=== PATIENT | female | born 1955 | race Caucasian/White ===

== ENCOUNTER → 2016-09-18 | Outpatient (CLI) | payer BC | END | disposition home or self-care (01) | LOC: RAD 10:32 | DX: R07.9 Chest pain, unspecified (principal); R22.2 Localized swelling, mass and lump, trunk ==

== ENCOUNTER → 2017-07-30 | Outpatient (CLI) | payer BC | END | disposition home or self-care (01) | LOC: RAD 12:24 | DX: M54.5 Low back pain (principal) ==

== ENCOUNTER 2024-09-14 15:14 | Inpatient (IN) | payer OTHER ==
[~2024-09-14] VITALS: Ht 157.4 cm; Wt 86.9 kg
[2024-09-14] MEDS ORDERED: MAGNESIUM SULFATE 50 ML IV ONE (15:25)
[2024-09-14] MEDS ORDERED: Albuterol Sulf/Ipratropium 3 ML VIAL NEB ONE (15:25)
[2024-09-14 15:29] VITALS: BP 124/87
[2024-09-14 15:52] LABS: BASO % 0.3 % (0.0-1.0); EOS # 0.1 10*3/uL (0.0-0.4); EOS % 2.1 % (1.0-4.0); HEMATOCRIT 44.3 % (37.0-47.0); MEAN CELL VOLUME 93.9 fl (81.0-99.0); MEAN CORPUSCULAR HGB 31.8 pg (27.0-31.0); MEAN CORPUSCULAR HGB CONC 33.9 g/dl (33.0-37.0); MEAN PLATELET VOLUME 9.6 fl (9.6-12.3); MONO # 0.4 10*3/uL (0.1-1.0); NEUT # 3.8 10*3/uL (2.3-7.9); NEUT % 61.9 % (47.0-73.0); PLATELET COUNT AUTOMATED 327 10*3/uL (130-400); RED BLOOD COUNT 4.72 10*6/uL (4.10-5.10); RED CELL DISTRI WIDTH 12.9 % (0-14.5); WHITE BLOOD COUNT 6.1 10*3/uL (4.8-10.8)
[2024-09-14] MEDS ORDERED: Albuterol Sulfate 2.5 MG/3 ML VIAL NEB ONE (15:55)
[2024-09-14 16:03] LABS: ACT PARTIAL THROMBO TIME 25.3 SECONDS (20.0-32.1)
[2024-09-14 16:46] LABS: ALKALINE PHOSPHATASE 117 U/L (46-116); BUN 14 mg/dl (9-23); CHLORIDE 103 mmol/L (98-107); SGPT/ALT 48 U/L (5-49); TOTAL PROTEIN 7.4 gm/dL (6.0-8.0)
[2024-09-14] MEDS ORDERED: VENT7GM INH (16:50)
[2024-09-14 16:51] VITALS: BP 136/85
[2024-09-14] MEDS ORDERED: BISACODYL 10 MG SUPP R PRN (17:25)
[2024-09-14] MEDS ORDERED: MORPHINE Sulfate 2 MG/ML SYR IV PRN (17:25)
[2024-09-14] MEDS ORDERED: Acetaminophen/Hydrocodone 5 MG/325 MG TABLET PO PRN (17:25)
[2024-09-14] MEDS ORDERED: Ondansetron Hydrochloride 4 MG/2 ML VIAL IV PRN (17:25)
[2024-09-14] MEDS ORDERED: TEMAZEPAM 15 MG CAP PO PRN (17:25)
[2024-09-14] MEDS ORDERED: ACETAMINOPHEN 650 MG SUPP R PRN (17:25)
[2024-09-14] MEDS ORDERED: BISACODYL 5 MG TAB PO PRN (17:25)
[2024-09-14] MEDS ORDERED: ACETAMINOPHEN 325 MG TAB PO PRN (17:25)
[2024-09-14] MEDS ORDERED: Magnesium Hydroxide 30 ML UDC PO PRN (17:25)
[2024-09-14] MEDS ORDERED: Albuterol Sulf/Ipratropium 3 ML VIAL NEB SCH (17:30)
[2024-09-14] MEDS ORDERED: IOHEXOL 350 MG/ML 100 ML VIAL IV ONE (17:45)
[2024-09-14] MEDS ORDERED: SODIUM CHLORIDE 0.9% 100 ML BAG IV ONE (17:45)
[2024-09-14] MEDS ORDERED: RIVAROXABAN 20 MG TAB PO SCH (18:00)
[2024-09-14] MEDS ORDERED: Enoxaparin Sodium 100 MG/ML SYR SC SCH (18:00)
[2024-09-14] MEDS ORDERED: AZITHROMYCIN 250 ML IV SCH (18:00)
[2024-09-14 18:01] LABS: ABG BASE EXCESS -1.1 mmol/L (-2.0-3.0); ABG O2 SATURATION 97.9 % (94.0-98.0); ARTERIAL BLOOD GAS PH 7.457 (7.350-7.450); ARTERIAL BLOOD GAS PO2 97.6 mmHg (83.0-108.0)
[2024-09-14] MEDS ORDERED: cefTRIAXone Sodium 10 ML IV SCH (19:00)
[2024-09-14 19:16] VITALS: BP 141/84
[2024-09-14] MEDS ORDERED: GUAIFENESIN 600 MG TAB ER PO SCH (22:00)
[2024-09-14] MEDS ORDERED: Dexamethasone Sodium Phospha 10 MG/1 ML VIAL IV SCH (22:00)
[2024-09-14 23:00] VITALS: BP 123/70
[2024-09-15] MEDS ORDERED: DEXAMETHASONE IV SCH (06:00)
[2024-09-15] MEDS ORDERED: [UNRECOGNIZED DRUG - OTHER] IV SCH (06:00)
[2024-09-15 06:20] LABS: HEMATOCRIT 39.8 % (37.0-47.0); MEAN CELL VOLUME 94.5 fl (81.0-99.0); MEAN CORPUSCULAR HGB 31.1 pg (27.0-31.0); MEAN CORPUSCULAR HGB CONC 32.9 g/dl (33.0-37.0); MEAN PLATELET VOLUME 9.9 fl (9.6-12.3); MONO # 0.2 10*3/uL (0.1-1.0); MONO % 4.2 % (3.0-9.0); NEUT # 2.8 10*3/uL (2.3-7.9); PLATELET COUNT AUTOMATED 315 10*3/uL (130-400); RED BLOOD COUNT 4.21 10*6/uL (4.10-5.10); RED CELL DISTRI WIDTH 12.7 % (0-14.5); WHITE BLOOD COUNT 3.6 10*3/uL (4.8-10.8)
[2024-09-15 06:37] LABS: ALKALINE PHOSPHATASE 102 U/L (46-116); BUN 13 mg/dl (9-23); CHLORIDE 102 mmol/L (98-107); CHOLESTEROL 182 mg/dL (<200); FREE T4 1.14 ng/dl (0.89-1.76); LDL CHOLESTEROL 115 mg/dL (9-159); POTASSIUM 4.7 mmol/L (3.4-5.1); SGPT/ALT 41 U/L (5-49); TRIGLYCERIDES 76 mg/dl (<150)
[2024-09-15 06:58] LABS: VITAMIN D, 25-HYDROXY 41.1 ng/mL (30-100)
[2024-09-15] MEDS ORDERED: SODIUM CHLORIDE 0.9% 1,000 ML IV SCH (07:20)
[2024-09-15] MEDS ORDERED: Phosphorus/Potassium 1.45 GM PACKET PO SCH (07:30)
[2024-09-15 08:00] VITALS: BP 128/82
[2024-09-15 12:00] VITALS: BP 141/79
[2024-09-15] MEDS ORDERED: methylPREDNISolone sod succ 125 MG VIAL IV SCH (13:30)
[2024-09-15 16:00] VITALS: BP 127/66
[2024-09-15] MEDS ORDERED: RIVAROXABAN 20 MG TAB PO SCH (18:00)
[2024-09-15 20:00] VITALS: BP 141/73
[2024-09-15] MEDS ORDERED: FLUTICASONE PROPIONATE Nasal 16 Gm spray NAS SCH (21:00)
[2024-09-16] VITALS: BP 96/66
[2024-09-16 02:22] LABS: BILIRUBIN Negative (Negative); BLOOD Negative (Negative); CLARITY Clear (Clear); COLOR Yellow (Yellow); GLUCOSE 1+ (Negative); KETONE Negative (Negative); LEUKO ESTERASE 2+ (Negative); NITRITE Negative (Negative); PH 6.5 (4.5-8.0); SPECIFIC GRAVITY 1.015 (1.001-1.030); UROBILINOGEN 0.2 E.U./dl (0.0-1.0)
[2024-09-16 06:25] LABS: BASO % 0.1 % (0.0-1.0); HEMATOCRIT 36.9 % (37.0-47.0); MEAN CELL VOLUME 95.8 fl (81.0-99.0); MEAN CORPUSCULAR HGB 31.4 pg (27.0-31.0); MEAN CORPUSCULAR HGB CONC 32.8 g/dl (33.0-37.0); MEAN PLATELET VOLUME 9.9 fl (9.6-12.3); MONO # 0.5 10*3/uL (0.1-1.0); MONO % 3.7 % (3.0-9.0); NEUT # 11.8 10*3/uL (2.3-7.9); NEUT % 88.9 % (47.0-73.0); PLATELET COUNT AUTOMATED 379 10*3/uL (130-400); RED BLOOD COUNT 3.85 10*6/uL (4.10-5.10); RED CELL DISTRI WIDTH 13.1 % (0-14.5); WHITE BLOOD COUNT 13.2 10*3/uL (4.8-10.8)
[2024-09-16 06:28] LABS: BUN 9 mg/dl (9-23); CHLORIDE 107 mmol/L (98-107); POTASSIUM 3.8 mmol/L (3.4-5.1)
[2024-09-16 08:00] VITALS: BP 133/86
[2024-09-16] MEDS ORDERED: PEPCID AC20 MG PO (08:16)
[2024-09-16] MEDS ORDERED: MUCINEX D ER 61 EACH PO (08:19)
[2024-09-16] MEDS ORDERED: ZYRTEC ALLERGY10 MG PO (08:20)
[2024-09-16] MEDS ORDERED: B121000 MCG/2 IM (08:20)
[2024-09-16] MEDS ORDERED: LASIX20 MG PO (08:21)
[2024-09-16] MEDS ORDERED: Ondansetron4 MG PO (08:22)
[2024-09-16 12:00] VITALS: BP 118/43; BP 123/75
[2024-09-16 16:00] VITALS: BP 128/70
[2024-09-16 20:00] VITALS: BP 124/71
[2024-09-16] MEDS ORDERED: cefTRIAXone Sodium 10 ML IV SCH (20:00)
[2024-09-16] MEDS ORDERED: methylPREDNISolone sod succ 125 MG VIAL IV SCH (22:00)
[2024-09-17] VITALS: BP 102/58
[2024-09-17 06:08] LABS: BASO % 0.2 % (0.0-1.0); HEMATOCRIT 36.6 % (37.0-47.0); MEAN CELL VOLUME 95.6 fl (81.0-99.0); MEAN CORPUSCULAR HGB 31.1 pg (27.0-31.0); MEAN CORPUSCULAR HGB CONC 32.5 g/dl (33.0-37.0); MEAN PLATELET VOLUME 9.7 fl (9.6-12.3); MONO # 0.6 10*3/uL (0.1-1.0); MONO % 4.9 % (3.0-9.0); NEUT # 10.2 10*3/uL (2.3-7.9); NEUT % 80.6 % (47.0-73.0); PLATELET COUNT AUTOMATED 394 10*3/uL (130-400); RED BLOOD COUNT 3.83 10*6/uL (4.10-5.10); RED CELL DISTRI WIDTH 13.2 % (0-14.5); WHITE BLOOD COUNT 12.6 10*3/uL (4.8-10.8)
[2024-09-17 06:35] LABS: BUN 13 mg/dl (9-23); CHLORIDE 106 mmol/L (98-107); POTASSIUM 4.3 mmol/L (3.4-5.1)
[2024-09-17 08:00] VITALS: BP 123/72
[2024-09-17] MEDS ORDERED: Dicyclomine Hydrochloride 20 MG/10 ML OSYR PO STA (08:11)
[2024-09-17] MEDS ORDERED: Lidocaine Hydrochloride 15 ML UDC PO STA (08:11)
[2024-09-17] MEDS ORDERED: MG-AL HYDROXIDE/SIMETICONE 30 ML UDC PO STA (08:11)
[2024-09-17] MEDS ORDERED: Cetirizine Hydrochloride 10 MG TAB PO SCH (10:00)
[2024-09-17] MEDS ORDERED: CYANOCOBALAMIN 1,000 MCG/ML VIAL IM SCH (10:00)
[2024-09-17] MEDS ORDERED: FUROSEMIDE 20 MG TAB PO SCH (10:00)
[2024-09-17] MEDS ORDERED: FAMOTIDINE 20 MG TAB PO SCH (10:00)
[2024-09-17 12:00] VITALS: BP 108/73
[2024-09-17 16:00] VITALS: BP 123/76
[2024-09-17] MEDS ORDERED: Ketorolac Tromethamine 15 MG/ML VIAL IV ONE (17:30)
[2024-09-17 20:00] VITALS: BP 113/67
[2024-09-17] MEDS ORDERED: Lidocaine Hydrochloride 2 ML AMP IM ONE (20:05)
[2024-09-17] MEDS ORDERED: Lidocaine Hydrochloride 2 ML IV ONE (20:18)
[2024-09-17] MEDS ORDERED: Ondansetron Hydrochloride 4 MG TAB PO ONE (20:35)
[2024-09-17] MEDS ORDERED: Doxycycline Hyclate 100 MG CAPSULE PO SCH (22:00)
[2024-09-18] VITALS: BP 138/89
[2024-09-18 08:00] VITALS: BP 133/81
[2024-09-18] MEDS ORDERED: Dicyclomine Hydrochloride 20 MG/10 ML OSYR PO STA (11:03)
[2024-09-18] MEDS ORDERED: Lidocaine Hydrochloride 15 ML UDC PO STA (11:03)
[2024-09-18] MEDS ORDERED: MG-AL HYDROXIDE/SIMETICONE 30 ML UDC PO STA (11:03)
[2024-09-18] MEDS ORDERED: Pantoprazole Sodium 40 MG TAB PO SCH (11:26)
[2024-09-18 12:00] VITALS: BP 137/86
[2024-09-18 16:00] VITALS: BP 134/71
[2024-09-18 20:00] VITALS: BP 115/73
[2024-09-18] MEDS ORDERED: Doxycycline Hyclate 100 MG in SODIUM CHLORIDE 0.9% 250 ML IV SCH (22:00)
[2024-09-19] VITALS: BP 123/78
[2024-09-19 06:39] LABS: BUN 16 mg/dl (9-23); CHLORIDE 105 mmol/L (98-107); POTASSIUM 4.4 mmol/L (3.4-5.1)
[2024-09-19 08:00] VITALS: BP 138/78
[2024-09-19 12:00] VITALS: BP 132/80
[2024-09-19 16:00] VITALS: BP 115/72
[2024-09-19 20:00] VITALS: BP 122/73
[2024-09-20] VITALS: BP 124/74
[2024-09-20 08:00] VITALS: BP 131/73
[2024-09-20 12:00] VITALS: BP 115/67
[2024-09-20] MEDS ORDERED: BUDESONIDE 0.5 MG AMP NEB SCH (13:15)
[2024-09-20 16:00] VITALS: BP 115/67
[2024-09-20 20:00] VITALS: BP 110/61
[2024-09-20] MEDS ORDERED: methylPREDNISolone sod succ 40 MG VIAL IV SCH (22:00)
[2024-09-21] VITALS: BP 144/66
[2024-09-21 06:42] LABS: HEMATOCRIT 39.1 % (37.0-47.0); MEAN CELL VOLUME 97.3 fl (81.0-99.0); MEAN CORPUSCULAR HGB 31.3 pg (27.0-31.0); MEAN CORPUSCULAR HGB CONC 32.2 g/dl (33.0-37.0); MEAN PLATELET VOLUME 9.4 fl (9.6-12.3); PLATELET COUNT AUTOMATED 486 10*3/uL (130-400); RED BLOOD COUNT 4.02 10*6/uL (4.10-5.10)
[2024-09-21 06:44] LABS: MANUAL DIFF REFLEX YES
[2024-09-21 08:00] VITALS: BP 137/84
[2024-09-21 08:00] LABS: BASOPHILS 1 % (0-1); PLATELET SUFFICIENCY HIGH (NORMAL); TOTAL CELLS COUNTED 100 #CELLS
[2024-09-21] MEDS ORDERED: XARE20MG PO ×2 (11:03→11:17)
[2024-09-21] MEDS ORDERED: PREDNISONE10 MG PO ×2 (11:03→11:18)
[2024-09-21] MEDS ORDERED: DOXYCYCLINE HY100 M3 PO ×2 (11:03→11:17)
[2024-09-21] MEDS ORDERED: LASIX20 MG PO (11:20)
[2024-09-21] MEDS ORDERED: VITAMIN B121000 MC3 PO (11:20)
[2024-09-21] MEDS ORDERED: PEPCID AC20 MG PO (11:20)
[2024-09-21] MEDS ORDERED: VENT7GM INH (11:20)
[2024-09-21 12:00] VITALS: BP 120/86
[2024-09-21] MEDS ORDERED: B121000 MCG/1 IM (12:21)
[2024-09-21] MEDS ORDERED: Ondansetron4 MG PO (12:21)
== END 2024-09-21 12:01 | disposition home or self-care (01) | DRG 871 ==
LOC: ED 15:14 → EDHOLD 16:53 → 4E 16:53
PROVIDERS: Internal Medicine; Student in an Organized Health Care Education/Training Program; ADMIT Internal Medicine; ATTEND Internal Medicine
DX: A41.9 Sepsis, unspecified organism (principal); J96.01 Acute respiratory failure with hypoxia; J45.41 Moderate persistent asthma with (acute) exacerbation; D68.51 Activated protein C resistance; E87.21 Acute metabolic acidosis; J84.114 Acute interstitial pneumonitis; R65.20 Severe sepsis without septic shock; R73.9 Hyperglycemia, unspecified; K21.9 Gastro-esophageal reflux disease without esophagitis; D51.0 Vitamin B12 deficiency anemia due to intrinsic factor deficiency; J20.9 Acute bronchitis, unspecified; E66.01 Morbid (severe) obesity due to excess calories; Z96.652 Presence of left artificial knee joint; Z90.49 Acquired absence of other specified parts of digestive tract; Z90.710 Acquired absence of both cervix and uterus; Z87.891 Personal history of nicotine dependence; Z82.49 Family history of ischemic heart disease and other diseases of the circulatory system; Z68.35 Body mass index [BMI] 35.0-35.9, adult